=== PATIENT | female | born 1990 | race Caucasian/White ===

== ENCOUNTER 2018-07-18 12:05 | Emergency (ER) | payer BC ==
--- NOTE | 2018-07-18 12:32 | EDPHY ---
H & P Stated Complaint: SYNCOPE Time Seen by Provider: 07/18/18 12:32 - Personal History Current Tetanus/Diphtheria Vaccine: Yes - Medical/Surgical History Hx Asthma: Yes Hx Chronic Respiratory Disease: No Hx Diabetes: No Hx Cardiac Disease: No Hx Renal Disease: No Hx Cirrhosis: No Hx Alcoholism: No Hx HIV/AIDS: No Hx Splenectomy or Spleen Trauma: No - Social History Smoking Status: Never smoked Constitutional: Initial Vital Signs Temperature (C) 36.8 C 07/18/18 12:11 Heart Rate 92 07/18/18 12:11 Respiratory Rate 16 07/18/18 12:11 Blood Pressure 112/68 07/18/18 12:11 O2 Sat (%) 97 07/18/18 12:11 O2 Delivery Mode Room Air Allergies/Adverse Reactions: amoxicillin Allergy (Verified 07/18/18 12:11) peanut Allergy (Verified 07/18/18 12:11) Penicillins Allergy (Verified 07/18/18 12:11) Sulfa (Sulfonamide Antibiotics) Allergy (Verified 07/18/18 12:11) FLU SHOT Allergy (Uncoded 07/18/18 12:11) Home Medications: Medication Instructions Recorded Albuterol 07/18/18 Medical Decision Making ED Course/Re-evaluation: CHIEF COMPLAINT: Syncope HISTORY OF PRESENT ILLNESS: The patient is a 27 y/o female with a history of asthma arriving via EMS for a syncopal episode this morning. The patient woke up early this morning for a flight from [place] to [place] and felt normal at that time. She did not eat or drink much food while on the flight. When she arrived in [place] she went to breakfast and had a mimosa. She also ate a marijuana edible prior to breakfast at 09:30, 3 hours ago. Towards the end breakfast she began to feel hot and developed tunnel vision. When she went outside after the onset of symptoms, she couldn't see anything. Per her boyfriend, the patient then had a syncopal episode so he called EMS. Her symptoms have been improving since the syncopal episode. No headache, chest pain, shortness of breath, abdominal pain, urinary or bowel complaints, numbness, paresthesias, fever. REVIEW OF SYSTEMS: A comprehensive 10 system review of systems is otherwise negative aside from elements mentioned in the history of present illness and medical decision making. PHYSICAL EXAM: HR, BP, O2 Sat, RR. Temp noted General Appearance: Alert, appropriate, and non-toxic appearing. Head: Atraumatic without scalp tenderness or obvious injury Eyes: Pupils equal, round, reactive to light and accommodation, EOMI, no trauma , no injection. Ears: Clear bilaterally, no perforation, normal landmarks Nose: Atraumatic, no rhinorrhea, clear. Throat: There is no erythema or exudates, no lesions, normal tonsils, mucus membranes moist. Neck: Supple, nontender, no lymphadenopathy. Respiratory: No retractions, no distress, no wheezes, and no accessory muscle use. Lungs are clear to auscultation bilaterally. Cardiovascular: Mild tachycardia, no murmurs, rubs, or gallops. Bilateral carotid, radial, dorsalis pedis, and posterior tibial pulses intact. Good capillary refill all extremities. Gastrointestinal: Abdomen is soft, nontender, non-distended, no masses, no rebound, no guarding, no peritoneal signs. Musculoskeletal: Normal active ROM of all extremities, atraumatic. Neurological: Alert, appropriate, and interactive. The patient has normal DTRs and non-focal cranial nerves, motor, sensory, and cerebellar exam. Skin: No rashes, good turgor, no nodules on palpation. Past medical history: Asthma Past surgical history: Denies Family history: Denies Social history: Boyfriend at bedside, lives in [place], employed DIAGNOSTICS/PROCEDURES/CRITICAL CARE TIME: EKG: The 12 lead EKG was interpreted by myself as sinus rhythm with a rate of 83. See hard copy and/or "tracemaster" electronic copy for interpretation. DIFFERENTIAL DIAGNOSIS: The differential diagnosis for the patient's syncope included but was not limited to vasovagal syncope, arrhythmia, dehydration, cardiogenic causes, neurogenic causes, and blood loss. MEDICAL DECISION MAKING: The patient is a 27 y/o female with a history of asthma arriving via EMS for a syncopal episode this morning after flying in from [place], having a marijuana edible, and drinking a mimosa. She has a normal physical exam. Labs and EKG ordered. 1228: I reviewed patient's EKG as sinus rhythm with a rate of 83. 1250: Reassessed patient and discussed EKG findings. Labs still pending. 1309: Reassessed patient, she continues to feel better. Her symptoms were most likely due to dehydration and eating a marijuana edible. Her labs are unremarkable. Return precautions provided; patient is comfortable with this plan. - Data Points Laboratory Results: 07/18/18 12:54 POC Hgb 13.3 gm/dL gm/dL (12.6-16.3) POC Hct 39 % % (38-47) POC Sodium 141 mEq/L mEq/L (135-145) POC Potassium 3.4 mEq/L mEq/L (3.3-5.0) POC Chloride 103 mEq/L mEq/L (97-110) POC BUN 10 mg/dL mg/dL (7-23) POC Creatinine 0.9 mg/dL mg/dL (0.6-1.0) POC Glucose 108 mg/dL H mg/dL (70-100) Point of Care Test Results: Chemistry 07/18/18 12:54 POC Sodium 141 mEq/L mEq/L (135-145) POC Potassium 3.4 mEq/L mEq/L (3.3-5.0) POC Chloride 103 mEq/L mEq/L (97-110) POC BUN 10 mg/dL mg/dL (7-23) POC Creatinine 0.9 mg/dL mg/dL (0.6-1.0) POC Glucose 108 mg/dL H mg/dL (70-100) ISTAT H&H 07/18/18 12:54 POC Hgb 13.3 gm/dL gm/dL (12.6-16.3) POC Hct 39 % % (38-47) Departure - Departure Disposition: Home, Routine, Self-Care Clinical Impression: Dehydration Syncope Qualifiers: Syncope type: unspecified Qualified Code(s): R55 - Syncope and collapse Condition: Good Instructions: Dehydration (ED), Syncope (ED) Additional Instructions: 1. Please increase your fluid intake. 2. Follow-up with your primary doctor within 72 hours. 3. Return to the Emergency Department for fever, chest pain, shortness of breath , increasing pain or other worsening of condition. Referrals: [facility],. [Clinic] - As per Instructions Milvia Mccullough MD [Medical Doctor] - As per Instructions Report Scribed for: Sukhi White Report Scribed by: Tracey Dow Date of Report: 07/18/18 Time of Report: 12:44
[2018-07-18 13:19] VITALS: BP 112/79
--- NOTE | 2018-07-18 15:00 | CPEKG ---
Test Reason : OPEN Blood Pressure : / mmHG Vent. Rate : 083 BPM Atrial Rate : 083 BPM P-R Int : 142 ms QRS Dur : 091 ms QT Int : 393 ms P-R-T Axes : 040 064 031 degrees QTc Int : 462 ms Sinus rhythm Confirmed by Sukhi White ([id number]) on 07/18/2018 2:59:51 PM Referred By: Confirmed By:Sukhi White
== END 2018-07-18 13:19 | disposition home or self-care (01) ==
DX: R55 Syncope and collapse (principal); E86.0 Dehydration
CPT/HCPCS: 82435-PO; 82565-PO; 82947-PO; 84132-PO; 84295-PO; 84520-PO; 85014-PO